=== PATIENT | female | born 1970 | race Caucasian/White ===

== ENCOUNTER 2016-08-06 05:54 | Inpatient (IN) | payer OTHER ==
[~2016-08-06 05:54] MED LIST: ERTAPENEM SODIUM 1 G in NS 0.9% (MINI-BAG PLUS) 50 ML IV ONE; IV START KIT ONE; LACTATED RINGERS 0 ML ONE
[2016-08-06] MEDS ORDERED: ACETAMINOPHEN 500 MG TABLET PO ONE (06:15)
[2016-08-06] MEDS ORDERED: ALVIMOPAN 12 MG CAPSULE PO ONE (06:15)
[2016-08-06] MEDS ORDERED: GABAPENTIN 300 MG CAPSULE PO ONE (06:15)
[2016-08-06] MEDS ORDERED: SODIUM CHLORIDE 0.9% 1,000 ML ONE (06:18)
[2016-08-06] MEDS ORDERED: FENTANYL 5 ML ONE (07:06)
[2016-08-06] MEDS ORDERED: FAMOTIDINE 10 MG/ML 2ML VIAL ONE (07:06)
[2016-08-06] MEDS ORDERED: MIDAZOLAM HCL 5 MG/5 ML VIAL ONE (07:06)
[2016-08-06] MEDS ORDERED: BUPIVACAINE 0.5% W/EPI SDV 30 ML VIAL ONE (07:14)
[2016-08-06] MEDS ORDERED: ONDANSETRON 4 MG/2ML 2 ML VIAL ONE (07:34)
[2016-08-06] MEDS ORDERED: ROCURONIUM BROMIDE 10 MG/ML DOSE IV ONE ×5 (07:34→08:19)
[2016-08-06] MEDS ORDERED: PROPOFOL 20 ML IV ONE (07:34)
[2016-08-06] MEDS ORDERED: DIPHENHYDRAMINE HCL 50 MG/1 ML VIAL ONE (07:34)
[2016-08-06] MEDS ORDERED: IOPAMIDOL 300 (61%) 30 ML SDV ONE (07:35)
[2016-08-06] MEDS ORDERED: FENTANYL 100 MCG/2 ML VIAL IV PRN (07:49)
[2016-08-06] MEDS ORDERED: PROMETHAZINE HCL 25 MG/ML VIAL IM PRN (07:49)
[2016-08-06] MEDS ORDERED: ONDANSETRON 4 MG/2ML 2 ML VIAL IV PRN ×2 (07:49→12:38)
[2016-08-06] MEDS ORDERED: HYDROMORPHONE HCL 1 MG/ML SYRINGE IV PRN (07:49)
[2016-08-06] MEDS ORDERED: NALOXONE HCL 0.4 MG/ML VIAL IV PRN (07:49)
[2016-08-06] MEDS ORDERED: ATROPINE SULFATE 0.4 MG/1 ML VIAL IV PRN (07:49)
[2016-08-06] MEDS ORDERED: SODIUM CHLORIDE 0.9% 1,000 ML IV SCH (08:00)
--- NOTE | 2016-08-06 08:19 | OP ---
Kristina Briceño [id number] DATE OF OPERATION: August 06, 2016 SURGEON: Saad Mendez M.D. RAGS LABORER: None. ANESTHESIA: General. 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 POSTOPERATIVE DIAGNOSIS: Ureters at risk related to sigmoid colon carcinoma. PROCEDURE: Cystoscopy, placement of bilateral externalized ureteral stents. SPECIMENS: None. INDICATIONS: A 45-year-old woman is to undergo a colectomy under the direction of Dr. Brendan Park for colon carcinoma and surgeon considers the ureters at risk due to the location and nature of tumor. He has requested externalized stents. FINDINGS: Minimal squamous metaplasia of the distal trigone. Ureteral orifices normally disposed. No focal bladder lesions or signs of fistula. The stents were placed following a normal course of the ureters on both sides. PROCEDURE IN DETAIL: The patient was identified and brought to the operating room where general anesthesia was induced supine. She was then placed in a dorsolithotomy position and the genital region prepared and draped sterilely. A 21-Malawian rigid cystoscope was introduced with water and irrigant. Findings are reported above. Starting on the left side, we passed a open ended catheter with a floppy tip wire through it, using the wire as a guide up the distal ureter and fluoroscopy to place the stents to position overlying the pelvic bone posteriorly. After removing the wire, the cystoscope was withdrawn leaving the stent in place. The cystoscope was returned to the bladder alongside the left stent and then the right stent was placed in a similar fashion. After the cystoscope had been withdrawn and the stent position was confirmed fluoroscopically, we passed a 60-Malawian Leonardo catheter to gravity drainage with 10 mL of water in its balloon. The externalized stents were secured to the Leonardo catheter using 2-0 Silk Ligasure's. Finally, the ends of each stent were attached to syringes to prevent any unwanted drainage. Estimated blood loss 0. No complications. Patient will remain under anesthesia and surgery continues under the direction of Dr. Brendan Park. JOB: [id number] CC: Dr. Brendan Fischer
[2016-08-06] MEDS ORDERED: INSULIN REGULAR HUMAN (DOSE) 100 UNITS/1 ML ONE ×3 (09:33→11:58)
[2016-08-06] MEDS ORDERED: HYDROMORPHONE HCL 2 MG/ML SYRINGE ONE (09:50)
[2016-08-06] MEDS ORDERED: DEXAMETHASONE SOD PHOS 4 MG/1 ML VIAL ONE (09:50)
[2016-08-06] MEDS ORDERED: METOCLOPRAMIDE HCL 5 MG/ML 2ML VIAL ONE (09:50)
[2016-08-06] MEDS ORDERED: KETOROLAC TROMETHAMINE 30 MG/ML 1 ML VIAL ONE (11:07)
[2016-08-06] MEDS ORDERED: NEOSTIGMINE METHYLSULFATE 1 MG/ML DOSE ONE (11:08)
[2016-08-06] MEDS ORDERED: GLYCOPYRROLATE 0.2 MG/ML 1ML VIAL ONE (11:08)
--- NOTE | 2016-08-06 11:45 | RAD ---
[place] for CATHETER/TUBE PLCIN COMPARISON: CT abdomen and pelvis, 07/22/2016 HISTORY: Ureters at risk related to sigmoid colon carcinoma. Cystoscopy, placement of bilateral externalized ureteral stents. Fluoroscopy time: None FINDINGS: Views: 2 views of the ureteral stents/abdomen. Support equipment: There are 2 externalized ureteral stents in satisfactory position. Bones: Normal. Joints: Normal. Soft tissues: Normal. IMPRESSION: 1. There are 2 externalized ureteral stents in satisfactory position.
[2016-08-06] MEDS ORDERED: INSULIN REGULAR HUMAN (DOSE) 100 UNITS/1 ML SUB-Q ONE (12:06)
[2016-08-06] MEDS ORDERED: MENTHOL/CETYLPYRD 1 EACH LOZENGE PO PRN (12:38)
[2016-08-06] MEDS ORDERED: BLISTEX LIPSTICK 1 EACH TP PRN (12:38)
[2016-08-06] MEDS ORDERED: PCA ADMINISTRATION KIT ONE (13:21)
[2016-08-06] MEDS ORDERED: EtCO2 Monitoring Set ONE (13:23)
[2016-08-06] MEDS ORDERED: PUMP TUBING ONE (13:29)
[2016-08-06] MEDS: HYDROMORPHONE PCA (MONOJECT) 12 MG/30 ML INJ.SOLN IV SCH ×2 (13:45→18:08)
[2016-08-06] MEDS: LACTATED RINGERS 1,000 ML IV SCH ×2 (13:56→22:36)
[2016-08-06] MEDS: ACETAMINOPHEN IV SCH ×2 (14:02→19:51)
[2016-08-06] MEDS: BOT IV SCH ×2 (14:02→19:51)
[2016-08-06 16:04] VITALS: BMI 47.9
[2016-08-06] MEDS ORDERED: FLU VACC 2016-17 (36MO-64Y)/PF 60 MCG/0.5 ML SYRINGE IM V ONE (16:12)
[2016-08-06] MEDS ORDERED: PNEUMOCOCCAL 23-VAL P-SAC VAC 0.5 ML VIAL IM V ONE (16:12)
[2016-08-06] MEDS: INSULIN ASPART (DOSE) 100 UNITS/1 ML SUB-Q PRN (16:47)
[2016-08-06] MEDS: KETOROLAC TROMETHAMINE 30 MG/ML 1 ML VIAL IV SCH ×2 (17:55→22:36)
--- NOTE | 2016-08-06 19:05 | OP ---
ROC GIVENS [id number] DATE OF OPERATION: August 06, 2016 PREOPERATIVE DIAGNOSIS: Sigmoid colon cancer. POSTOPERATIVE DIAGNOSIS: Sigmoid colon cancer. PROCEDURE: LAPAROSCOPIC SIGMOID COLECTOMY. SURGEON: Brendan Park M.D. STONE FINISHER: Abel Caballero M.D. ANESTHESIA: Skyler Headley C.R.N.A., general endotracheal. INDICATIONS: This is a 45-year-old female who underwent a colonoscopy for rectal bleeding who was found to have a mass in the sigmoid colon. Biopsies confirmed adenocarcinoma. Metastatic workup was negative. We elected to proceed with laparoscopic colectomy with high chance of requiring an open surgery due to her significant obesity. DESCRIPTION: With informed consent she first was taken back to the operating room under the care of Dr. Mendez. She underwent a general endotracheal anesthetic. She had ureteral stents placed by Dr. Mendez, and the details of that will be delineated in a separate dictation. After completion of his procedure, she was left in [facility]. Arms were tucked and the abdomen was prepped and draped along with the perineal prep in the usual standard fashion. A vertical incision was made below the umbilicus. We dissected down to the fascia. This was opened with curved Prater scissors. Sutures of Surgilon were placed on the fascial edges and a Cora port was placed. A pneumoperitoneum was created. A 12 mm port was placed in the right lower quadrant. Two 5 mm ports were placed on the left lateral abdominal wall. General survey revealed no evidence of metastatic disease on the peritoneal surfaces or on the liver. I could see the black ink in the distal sigmoid colon. It appeared that there could have been some intraabdominal injection with multiple other areas with some ink staining. It appeared that there was adequate redundancy of the sigmoid colon to allow for a resection without taking down the splenic flexure. With the head down and the patient rotated to the right, we first identified the vascular pedicles of the sigmoid colon. Using the LigaSure, I dissected through the mesentery isolating the vascular pedicle. After some further dissection, we were able to identify the left ureter with a stent in place. We were clearly above that and divided the vascular pedicle with a vascular Endo KATELYN. We then began dissecting the lateral attachments away from the pelvis and sidewall. This was done with the LigaSure up to the mid descending colon. I dissected this down into the pelvis until the sigmoid colon could be completely mobilized to the midline. We then went down through the mesentery using the LigaSure. Superior hemorrhoidal vessels were isolated and divided with an Endo KATELYN. We dissected down to the floor of the pelvis which appeared to be at least 5 cm proximal to the area of ink. I freed the mesentery from the rectosigmoid junction. This was then divided using the Endo KATELYN in two fires. A Pfannenstiel incision was made. Electrocautery was used to divide the subcutaneous fat. Anterior rectus fascia was opened with electrocautery. The fascia was elevated off the rectus superiorly and inferiorly. The rectus muscles were split in the midline. The peritoneum was opened with scissors. This was opened further and a wound retractor was placed. Some towels were used to hold the small bowel out of the way. I was able to pull the specimen up so that I could identify the node bearing vascular pedicle. It appeared that we had gotten an adequate lymphadenectomy. I chose a site of proximal transection that appeared viable and would be able to extend down into the pelvis. That part of the colon was divided again with the Endo KATELYN. The specimen was taken to the back table and opened. The malignancy was identified with good proximal and distal margins. A suture was placed on the distal aspect for orientation and that was handed off to pathology. Through the wound retractor, a pursestring was placed around the descending colon. The staple line was excised. It easily accommodated a 33 sizer. A 33 EEA stapler was brought to the field. The anvil was placed in the distal stump and the pursestring tightened. There was possibly a diverticulum extending out to one side, and I was able to suture that up into the pursestring. This was then dropped down into the pelvis, and the GelPort was placed. From below, with laparoscopic exposure reestablished, Dr. Caballero then placed the EEA stapler into the rectum. We extended it to the rectal stump. The trocar was advanced. This was mated to the anvil. This would easily come together without tension. We made sure there was twisting. We had to pull the copious pericolic fat out of the anastomosis. The stapler was brought down to the appropriate level of tension. It was fired. It was released two full turns, and the stapler removed. We had two complete mucosal donuts. The pelvis was filled with fluid. The colon was grasped proximally, and the colonoscope was placed by Dr. Caballero. The anastomosis was hemostatic. It was a good end-to-end complete anastomosis. No air leak was seen in the pelvis. The scope was removed. The pelvis was irrigated. We appeared to have adequate hemostasis. We made sure all laps were removed, made sure the small bowel fell back into its normal position and this was covered then with omentum. Using a bullet and a suture passing device, we closed the fascial defect in the right lower quadrant using #0 Surgilon. The infraumbilical fascial defect was closed with multiple #0 Surgilon. The other fascial defects were small. The Pfannenstiel incision was closed with #2-0 Vicryl on the peritoneum. The anterior fascia was closed with looped #0 PDS. The wound was vigorously irrigated. All skin incisions were closed with jesica. Sterile dressings were applied. Abdominal binder was applied. The ureteral stents were removed, and the Leonardo catheter was left in place. She tolerated the procedure and was taken to the recovery room in stable condition. Note was made that needle, instrument and lap counts were reported as correct at time of closure. [id number] Cc: Saad Mendez M.D. Laci Lambert M.D.
[2016-08-06] MEDS: SERTRALINE HCL 50 MG TABLET PO SCH (19:51)
[2016-08-06] MEDS ORDERED: ARIPIPRAZOLE 2 MG TABLET PO SCH (20:00)
[2016-08-06] MEDS: MELATONIN 3 MG TABLET PO SCH (20:56)
[2016-08-06] MEDS: ALVIMOPAN 12 MG CAPSULE PO SCH (20:56)
[2016-08-07] MEDS: BOT IV SCH ×2 (01:26→06:51)
[2016-08-07] MEDS: ACETAMINOPHEN IV SCH ×2 (01:26→06:51)
[2016-08-07] MEDS: KETOROLAC TROMETHAMINE 30 MG/ML 1 ML VIAL IV SCH ×4 (04:44→22:40)
[2016-08-07] MEDS: HYDROMORPHONE PCA (MONOJECT) 12 MG/30 ML INJ.SOLN IV SCH (06:51)
[2016-08-07] MEDS: INSULIN ASPART (DOSE) 100 UNITS/1 ML SUB-Q PRN ×3 (07:04→20:55)
[2016-08-07] MEDS ORDERED: HYDROMORPHONE HCL 0.5 MG/0.5 ML SYRINGE IV PRN (07:11)
[2016-08-07] MEDS ORDERED: HYDROMORPHONE HCL 1 MG/ML SYRINGE IV PRN (07:15)
[2016-08-07 07:18] LABS: HEMATOCRIT 35.1 % (37.0-47.0); HEMOGLOBIN 11.4 gm/l (12.0-16.0); MEAN CELL VOLUME 88.9 fl (81.0-99.0); MEAN CORPUSCULAR HEMOGLOBIN 28.9 pg (27.0-31.0); MEAN CORPUSCULAR HGB CONC 32.5 g/dl (33.0-37.0); RED CELL DISTRIBUTION WIDTH 13.7 % (11.5-14.5)
[2016-08-07 07:31] LABS: ALB/GLOB RATIO 1.2 (>1.0); ALBUMIN 3.3 gm/dL (3.5-5.7); CALCIUM 8.1 mg/dL (8.6-10.3); MAGNESIUM 2.1 mg/dL (1.9-2.7)
[2016-08-07] MEDS ORDERED: IV START KIT ONE (07:34)
[2016-08-07] MEDS ORDERED: SODIUM CHLORIDE 0.9% 500 ML IV SCH (07:43)
[2016-08-07] MEDS: LACTATED RINGERS 1,000 ML IV SCH ×3 (08:37→19:19)
[2016-08-07] MEDS: ENOXAPARIN SODIUM 40 MG/0.4 ML SYRINGE SUB-Q SCH (08:37)
[2016-08-07] MEDS: ALVIMOPAN 12 MG CAPSULE PO SCH ×2 (08:37→20:47)
[2016-08-07] MEDS ORDERED: ACETAMINOPHEN 500 MG TABLET PO SCH (13:30)
--- NOTE | 2016-08-07 14:15 | US ---
RIGHT UPPER EXTREMITY VENOUS ULTRASOUND HISTORY: Right arm swelling x4 hours.. Sonography of the right upper extremity was performed, with a focus on the venous structures. FINDINGS: INTERNAL JUGULAR AND SUBCLAVIAN VEINS: Patent. AXILLARY VEIN: Patent and compressible. BRACHIAL VEINS: Patent and compressible. BASILIC AND CEPHALIC VEINS: Patent and compressible. DISTAL WRIST VEINS: Patent and compressible. RESPIRATORY AUGMENTATION OF FLOW: Present. ABNORMAL FLUID COLLECTIONS: None identified. IMPRESSION: No sonographic evidence of right upper extremity deep venous thrombosis. A voicemail message was left for Dr. Park on the date of examination at 1411 hours.
[2016-08-07] MEDS: ACETAMINOPHEN 500 MG TABLET PO SCH ×2 (17:01→22:39)
--- NOTE | 2016-08-07 18:14 | PDOC43 ---
- Subjective Subjective: Reports Flatus, Reports Pain Tolerable, Reports Other (Some right arm swelling.), Denies Nausea - Objective Vital Signs Temperature 98.2 F 08/07/16 15:49 Pulse Rate 69 08/07/16 15:49 Respiratory Rate 18 08/07/16 15:49 Blood Pressure 92/55 08/07/16 15:49 O2 Saturation by Pulse Oximetry 98 08/07/16 15:49 Oxygen Delivery Method Room Air Oxygen Flow Rate 0 Laboratory 08/07/16 06:07 08/07/16 06:07 08/07/16 08/07/16 08/07/16 17:06 11:23 06:51 RBC MCHC Estimated GFR POC Capillary Glucose 137 H 168 H 163 H Calcium AST Total Protein Albumin 08/07/16 08/06/16 06:07 20:55 RBC 3.95 L MCHC 32.5 L Estimated GFR 108 H POC Capillary Glucose 159 H Calcium 8.1 L AST 45 H Total Protein 6.0 L Albumin 3.3 L Active Medication Orders Category Date Time Status Acetaminophen [Tylenol] Med 08/07/16 17:00 Active 1,000 mg PO Q6H Alvimopan [Entereg] Med 08/06/16 21:00 Active 12 mg PO BID Aripiprazole [Abilify] Med 08/06/16 20:00 Active 2 mg PO QPM Enoxaparin Sodium [Lovenox] Med 08/07/16 08:34 Active 40 mg SUB-Q Q24H Hydromorphone HCl [Dilaudid] Med 08/07/16 07:11 Active 0.5 - 1 mg IV Q1H PRN Hydromorphone HCl [Dilaudid] Med 08/07/16 07:15 Active 0.5 - 1 mg IV Q1H PRN Insulin Aspart (Dose) [Novolog (Dose)] Med 08/06/16 12:38 Active See Protocol SUB-Q WM/BEDTIME PRN Ketorolac Tromethamine [Toradol] Med 08/06/16 17:00 Active 30 mg IV Q6H Lactated Ringers 1,000 ml Med 08/06/16 12:38 Active IV 100 mls/hr Lip [place] [Blistex] Med 08/06/16 12:38 Active 1 each TP PRN PRN Melatonin Med 08/06/16 20:00 Active 3 mg PO QPM Menthol/Cetylpyridinium [Cepacol] Med 08/06/16 12:38 Active 1 each PO PRN PRN Ondansetron 4 mg/2ml Vial [Zofran] Med 08/06/16 12:38 Active 4 mg IV Q4H PRN Sertraline HCl [Zoloft] Med 08/06/16 20:00 Active 150 mg PO QPM Sodium Chloride 0.9% Flush [Normal Saline 10ml Flush] Med 08/06/16 12:38 Active 10 - 50 ml IV PRN PRN Sodium Chloride 0.9% Flush [Normal Saline 10ml Flush] Med 08/06/16 17:00 Active 10 ml IV Q8HR Intake and Output 08/06/16 08/07/16 08/08/16 06:59 06:59 06:59 Intake Total 4160 1736 Output Total 695 400 Balance 3465 1336 General: Alert, Oriented x3 Abdomen: Soft, Mild Distention Wound: Dressing Clean/Dry/Intact - Assessment/ Plan (1) Cancer of sigmoid colon Status: Acute Assessment/ Plan: Doing well. Leonardo DC'd. No nausea. (2) Diabetes Qualifiers: Diabetes mellitus type: type 2 Diabetes mellitus complication status: with unspecified complications Diabetes mellitus exterminator helper insulin use: without exterminator helper use Qualifier Code: (E11.8) Type 2 diabetes mellitus with unspecified complications Status: Acute Assessment/ Plan: Stable on sliding scale insulin. Restart oral meds when taking regular food in next day or two. (3) Obesity Qualifiers: Obesity type: due to excess calories Obesity severity: morbid Qualifier Code: (E66.01) Morbid (severe) obesity due to excess calories Status: Acute Assessment/ Plan: Encourage ambulation. IS. (4) Sleep apnea Qualifiers: Sleep apnea type: unspecified type Qualifier Code: (G47.30) Sleep apnea , unspecified Status: Acute Assessment/ Plan: c-pap
[2016-08-07] MEDS: SERTRALINE HCL 50 MG TABLET PO SCH (20:47)
[2016-08-07] MEDS: MELATONIN 3 MG TABLET PO SCH (20:47)
[2016-08-07] MEDS: ARIPIPRAZOLE 2 MG TABLET PO SCH (20:48)
[2016-08-08] MEDS: LACTATED RINGERS 1,000 ML IV SCH ×2 (05:11→17:10)
[2016-08-08] MEDS: KETOROLAC TROMETHAMINE 30 MG/ML 1 ML VIAL IV SCH ×4 (05:11→17:27)
[2016-08-08] MEDS: ACETAMINOPHEN 500 MG TABLET PO SCH ×2 (05:12→11:29)
--- NOTE | 2016-08-08 06:46 | PDOC43 ---
- Subjective Subjective: Reports Flatus, Reports Pain Tolerable, Reports Bowel Movement, Denies Nausea - Objective Vital Signs Temperature 98.2 F 08/08/16 03:33 Pulse Rate 75 08/08/16 03:33 Respiratory Rate 18 08/08/16 03:33 Blood Pressure 111/61 08/08/16 03:33 O2 Saturation by Pulse Oximetry 97 08/08/16 03:33 Oxygen Delivery Method Room Air Oxygen Flow Rate 0 Laboratory 08/07/16 06:07 08/07/16 06:07 08/07/16 08/07/16 08/07/16 20:46 17:06 11:23 RBC MCHC Estimated GFR POC Capillary Glucose 221 H 137 H 168 H Calcium AST Total Protein Albumin 08/07/16 08/07/16 06:51 06:07 RBC 3.95 L MCHC 32.5 L Estimated GFR 108 H POC Capillary Glucose 163 H Calcium 8.1 L AST 45 H Total Protein 6.0 L Albumin 3.3 L Active Medication Orders Category Date Time Status Acetaminophen [Tylenol] Med 08/07/16 17:00 Active 1,000 mg PO Q6H Alvimopan [Entereg] Med 08/06/16 21:00 Active 12 mg PO BID Aripiprazole [Abilify] Med 08/06/16 20:00 Active 2 mg PO QPM Enoxaparin Sodium [Lovenox] Med 08/07/16 08:34 Active 40 mg SUB-Q Q24H Glimepiride [Amaryl] Med 08/08/16 09:00 Ordered 4 mg PO DAILY Hydromorphone HCl [Dilaudid] Med 08/07/16 07:11 Active 0.5 - 1 mg IV Q1H PRN Hydromorphone HCl [Dilaudid] Med 08/07/16 07:15 Active 0.5 - 1 mg IV Q1H PRN Insulin Aspart (Dose) [Novolog (Dose)] Med 08/06/16 12:38 Active See Protocol SUB-Q WM/BEDTIME PRN Ketorolac Tromethamine [Toradol] Med 08/06/16 17:00 Active 30 mg IV Q6H Lactated Ringers 1,000 ml Med 08/06/16 12:38 Active IV 100 mls/hr Lip [place] [Blistex] Med 08/06/16 12:38 Active 1 each TP PRN PRN Melatonin Med 08/06/16 20:00 Active 3 mg PO QPM Menthol/Cetylpyridinium [Cepacol] Med 08/06/16 12:38 Active 1 each PO PRN PRN Metformin HCl [Glucophage] Med 08/08/16 09:00 Ordered 1,000 mg PO BIDWM Ondansetron 4 mg/2ml Vial [Zofran] Med 08/06/16 12:38 Active 4 mg IV Q4H PRN Pioglitazone HCl [Actos] Med 08/08/16 09:00 Ordered 15 mg PO DAILY Sertraline HCl [Zoloft] Med 08/06/16 20:00 Active 150 mg PO QPM Sitagliptin Phosphate [Januvia] Med 08/08/16 09:00 Ordered 100 mg PO DAILY Sodium Chloride 0.9% Flush [Normal Saline 10ml Flush] Med 08/06/16 12:38 Active 10 - 50 ml IV PRN PRN Sodium Chloride 0.9% Flush [Normal Saline 10ml Flush] Med 08/06/16 17:00 Active 10 ml IV Q8HR Intake and Output 08/06/16 08/07/16 08/08/16 06:59 06:59 06:59 Intake Total 4160 4421 Output Total 695 1150 Balance 3465 3271 General: Alert, Oriented x3 Abdomen: Soft, Non-Distended Wound: Dressing Clean/Dry/Intact - Assessment/ Plan (1) Cancer of sigmoid colon Status: Acute Assessment/ Plan: Advance diet. Restart diabetic meds. 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 Restart oral meds. (3) Obesity Qualifiers: Obesity type: due to excess calories Obesity severity: morbid Qualifier Code: (E66.01) Morbid (severe) obesity due to excess calories Status: Acute Assessment/ Plan: Encourage ambulation. IS. (4) Sleep apnea Qualifiers: Sleep apnea type: unspecified type Qualifier Code: (G47.30) Sleep apnea , unspecified Status: Acute Assessment/ Plan: c-pap
[2016-08-08 07:01] LABS: HEMATOCRIT 32.8 % (37.0-47.0); HEMOGLOBIN 10.8 gm/l (12.0-16.0); MEAN CELL VOLUME 89.1 fl (81.0-99.0); MEAN CORPUSCULAR HEMOGLOBIN 29.3 pg (27.0-31.0); MEAN CORPUSCULAR HGB CONC 32.9 g/dl (33.0-37.0); RED CELL DISTRIBUTION WIDTH 13.7 % (11.5-14.5)
[2016-08-08 07:20] LABS: ALB/GLOB RATIO 1.1 (>1.0); ALBUMIN 3.1 gm/dL (3.5-5.7)
[2016-08-08] MEDS: PIOGLITAZONE HCL 15 MG TABLET PO SCH (08:33)
[2016-08-08] MEDS: GLIMEPIRIDE 4 MG TABLET PO SCH (08:33)
[2016-08-08] MEDS: ENOXAPARIN SODIUM 40 MG/0.4 ML SYRINGE SUB-Q SCH (08:33)
[2016-08-08] MEDS: METFORMIN HCL 1,000 MG TABLET PO SCH ×2 (08:34→17:20)
[2016-08-08] MEDS: ALVIMOPAN 12 MG CAPSULE PO SCH ×2 (08:35→20:41)
[2016-08-08] MEDS: INSULIN ASPART (DOSE) 100 UNITS/1 ML SUB-Q PRN (08:35)
[2016-08-08] MEDS ORDERED: SITAGLIPTIN PHOSPHATE 100 MG TABLET PO SCH (09:00)
[2016-08-08] MEDS: SITAGLIPTIN PHOSPHATE 100 MG TABLET PO SCH (09:13)
[2016-08-08] MEDS: SERTRALINE HCL 50 MG TABLET PO SCH (20:41)
[2016-08-08] MEDS: ARIPIPRAZOLE 2 MG TABLET PO SCH (20:41)
[2016-08-08] MEDS: MELATONIN 3 MG TABLET PO SCH (20:41)
[2016-08-09] MEDS: LACTATED RINGERS 1,000 ML IV SCH (00:23)
[2016-08-09] MEDS: OXYCODONE HCL 5 MG TABLET PO PRN ×2 (01:25→09:38)
[2016-08-09 07:03] LABS: HEMATOCRIT 33.9 % (37.0-47.0); HEMOGLOBIN 10.9 gm/l (12.0-16.0); MEAN CELL VOLUME 89.7 fl (81.0-99.0); MEAN CORPUSCULAR HEMOGLOBIN 28.8 pg (27.0-31.0); MEAN CORPUSCULAR HGB CONC 32.2 g/dl (33.0-37.0); RED CELL DISTRIBUTION WIDTH 13.8 % (11.5-14.5)
[2016-08-09 07:16] LABS: CALCIUM 8.8 mg/dL (8.6-10.3)
[2016-08-09] MEDS: ENOXAPARIN SODIUM 40 MG/0.4 ML SYRINGE SUB-Q SCH (09:36)
[2016-08-09] MEDS: PIOGLITAZONE HCL 15 MG TABLET PO SCH (09:38)
[2016-08-09] MEDS: METFORMIN HCL 1,000 MG TABLET PO SCH (09:38)
[2016-08-09] MEDS: GLIMEPIRIDE 4 MG TABLET PO SCH (09:39)
[2016-08-09] MEDS: ALVIMOPAN 12 MG CAPSULE PO SCH (09:40)
[2016-08-09] MEDS: SITAGLIPTIN PHOSPHATE 100 MG TABLET PO SCH (09:41)
[2016-08-09 13:17] VITALS: BP 124/79
--- NOTE | 2016-08-09 13:29 | SURGPATH ---
[facility] [address] [place] [id number] Patient Name: ROC GIVENS MR#: [id number] : 1970 Gender: F Specimen #: [id number] Collected: 08/06/2016 Received: 08/07/2016 Reported: 08/09/2016 Submitting Phys: MAICO WHITE Copy To Phys: [facility] Addendum Present Clinical History / Pre-Operative Diagnosis: Sigmoid colon cancer Specimen Source / Surgical Procedure Performed: Sigmoid colon-stitch is distal HIGH PRIORITY DIAGNOSIS. REQUIRES CLINICAL ATTENTION Interpretation: RESECTION, SIGMOID COLON: - LOW-GRADE ADENOCARCINOMA OF SIGMOID COLON. - MARGINS OF RESECTION NEGATIVE FOR TUMOR. - NO EVIDENCE OF METASTATIC CARCINOMA IN A TOTAL OF 14 REGIONAL LYMPH NODES (0/14). - STAGE: pT3 pN0 - SEE SYNOPTIC REPORT. COLORECTAL CANCER CASE SUMMARY: SPECIMEN: Sigmoid colon PROCEDURE: Resection SPECIMEN LENGTH: 23 cm TUMOR SITE: Sigmoid colon TUMOR SIZE: 4.5 cm long x 3.5 cm wide x 0.7 cm deep MACROSCOPIC TUMOR PERFORATION: Absent MACROSCOPIC INTACTNESS OF MESORECTUM: Not applicable HISTOLOGIC TYPE: Adenocarcinoma HISTOLOGIC GRADE: Low-grade (well to moderately differentiated) MICROSCOPIC TUMOR EXTENSION: Tumor invades through the muscularis propria into the subserosal adipose tissue MARGINS: Proximal Margin: Uninvolved (10 cm). Distal Margin: Uninvolved (8 cm). Vascular/Mesenteric Margin: Uninvolved (10 cm). TREATMENT EFFECT (NEOADJUVANT THERAPY): No known prior treatment LYMPHATIC INVASION: Not identified LARGE VESSEL INVASION: Present PERINEURAL INVASION: Not identified TUMOR DEPOSITS (DISCONTINUOUS EXTRAMURAL EXTENSION): Not identified TYPE OF POLYP IN WHICH INVASIVE CARCINOMA AROSE: Indeterminate TNM DESCRIPTORS: Not applicable PRIMARY TUMOR (pT): pT3: Tumor invades through the muscularis propria into pericolorectal tissues REGIONAL LYMPH NODES (pN): pN0: No regional lymph node metastasis Number involved / Number examined: 0 / 14 DISTANT METASTASIS (pM): Not applicable ANCILLARY STUDIES: MMR testing by IHC is pending and will be reported separately. Testing is pending on block E. ADDITIONAL PATHOLOGIC FINDINGS: Not applicable Electronically Signed Out Christy Patino M.D. Addendum Date Reported: 08/12/2016 Signed Out Addendum Diagnosis MISMATCH REPAIR (MMR) PROTEIN EVALUATION BY IMMUNOHISTOCHEMISTRY: - MLH1 NUCLEAR EXPRESSION: INTACT - MSH2 NUCLEAR EXPRESSION: INTACT - MSH6 NUCLEAR EXPRESSION: INTACT - PMS2 NUCLEAR EXPRESSION: INTACT INTERPRETATION: Or or - NO LOSS OF NUCLEAR EXPRESSION OF MMR PROTEINS - LOW PROBABILITY OF MENDOZA SYNDROME OR MICROSATELLITE INSTABILITY RECOMMENDATION: - NO SPECIFIC FOLLOWUP RECOMMENDED Mismatch repair proteins are the products of four genes responsible for DNA mismatch repair. Inactivation of these genes may occur by germline mutation (i.e. Mendoza Syndrome) or sporadic inactivation. Loss of gene expression has a high sensitivity (90-95%) and specificity (100%) for the detection of microsatellite unstable cancers (MSI). Intact protein expression essentially excludes microsatellite unstable tumors or Mendoza Syndrome. However, intact protein expression does not exclude all types of hereditary cancer. If a strong family history of colorectal or other malignancies is present, genetic counseling may be indicated. Positive BRAF mutation analysis (if performed) is indicative of sporadic inactivation and virtually excludes Mendoza Syndrome. [facility] genetic counseling may be contacted at [phone]. (Immunohistochemical analysis is performed using standard methods on a Leica automated instrument using paraffin embedded tumor. Primary anti-sera react with MLH1, MSH2, MSH6, and PMS2 (Clones ES05, 25D12, PU29, M0R4G, Novocastra). Analyte-specific reagents (ASR) are used in many laboratory tests necessary for standard medical care and generally do not require FDA approval. This test was developed and its performance characteristics determined by [facility]. It has not been cleared or approved by the U.S. Food and Drug Administration. [facility] is certified under the Clinical Laboratory Improvement Amendments of 1988 as qualified to perform high complexity clinical laboratory testing. All internal (nuclear) and external controls stain as expected.) magnolia/08/12/2016 Electronically Signed Out Virgilio Deutsch M.D. Gross Description: The specimen is received in formalin labeled with the patient's name and "sigmoid colon". SPECIMEN: Organ/tissue received: Sigmoid colon Fixation: Formalin Number of pieces: One Dimensions: 23 x 2.2 x 2.2 cm Orientation (If indicated): Stitch is distal. TUMOR: Location: Sigmoid colon, central specimen, above peritoneal reflection Dimensions/description: The slightly exophytic bee granular mass is 4.5 x 3.5 x 0.7 cm with serpentine heaped up edges. The mass is approximately 75% of the bowel circumference. Distance from margins: Proximal: 10 cm Distal: 8 cm Radial/Vascular: 10 cm Estimated depth of invasion: Does not grossly appear to breach the colon wall or extend into the pericolonic fat. DESCRIPTION OF UNINVOLVED COLON/RECTUM AND ADDITIONAL PATHOLOGIC FEATURES: Serosa: Unremarkable with attached fat. Mucosa: The remaining mucosa is bee and normally folded. Mesorectum: Not included REGIONAL LYMPH NODES: 16 small possible lymph nodes are identified. TISSUE SUBMITTED FOR MICROSCOPIC EVALUATION: A. stapled en face distal margin B. stapled en face proximal margin C. vascular margin D.-G. inside technical sales representative mass H.-K. possible lymph nodes x4 each CHANO Trevino Microscopic Description: Performed. See synoptic report. 1: 88137, G8721, 11760, 74154(3), 64323, 77297(3) C18.7
--- NOTE | 2016-08-12 13:41 | DS ---
ROC GIVENS [id number] DATE OF ADMISSION: August 06, 2016 DATE OF DISCHARGE: August 09, 2016 SURGERY SERVICE: Brendan Park M.D. HISTORY: Roc Givens is a 45-year-old female who had symptoms of bright red blood per rectum. Colonoscopy by Dr. Pride showed a mass at 25 cm in the sigmoid colon. Biopsies proved this to be adenocarcinoma. The metastatic workup was negative. She did have a gallstone which was asymptomatic, a renal cyst and a small pulmonary lesion. She was taken to the operating room for elective sigmoid colectomy. PAST MEDICAL HISTORY: 1. Anxiety. 2. Depression. 3. Morbid obesity. 4. Type 2 diabetes. PAST SURGICAL HISTORY: 1. Pilonidal cyst surgery. 2. Left hip and sacral fracture in 1990 CURRENT MEDICATIONS: 1. Abilify 2 mg 2. Adult aspirin 81 mg. 3. Melatonin 3 mg 4. Glimepiride 4 mg daily. 5. Januvia 100 mg daily. 6. Metformin 1000 mg orally twice daily. 7. Sertraline 150 mg daily. 8. Simvastatin 10 mg daily. ALLERGIES: NONE KNOWN. HOSPITAL COURSE: Under general anesthesia the patient first had ureteral stents placed by Dr. Mendez. She then underwent a laparoscopic sigmoid colectomy. She was hemodynamically stable during the procedure and was taken to the recovery room in stable condition. With this surgical procedure, the patient had components of an enhanced recovery protocol in place. She was to receive preoperative carbohydrate supplementation. She was given multimodal pain medications as well as Entereg. Postoperatively her CPAP was utilized. She was encouraged to ambulate early. She was started on liquids initially. The Leonardo catheter was removed on postoperative day number one. By postoperative day two she was passing gas. By postoperative day three her pain was well controlled on oral medications. Her incisions were clean, dry and intact. She was eating and having bowel function. She was discharged to home in stable condition. FINAL DIAGNOSES: 1. 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 Pathologic T3, 0 of 14 lymph nodes with metastasis and 0M0. 2. Morbid obesity. 3. Diabetes. 4. Sleep apnea. PROCEDURES PERFORMED: 1. Laparoscopic sigmoid colectomy. 2. Placement of ureteral stents by Dr. Mendez. INSTRUCTIONS ON DISCHARGE: 1. She is to follow up in the office next week. 2. She is to resume her usual home medications. 3. She was given a prescription for oxycodone to take if needed. 4. She may shower. 5. She is to refrain from lifting greater than ten pounds for six weeks. 6. She can have a regular ADA diet. Cc: Guevara Fischer M.D. Canelo Pride M.D.
== END 2016-08-09 14:26 | disposition home or self-care (01) | DRG 330 ==
LOC: OR 05:54 → MS 13:03
PROVIDERS: ADMIT Surgery; ATTEND Surgery
PROC: 0DBN4ZZ Excision of Sigmoid Colon, Percutaneous Endoscopic Approach (ICD-10-PCS; principal; 2016-08-06)
PROC: 0T7D8DZ Dilation of Urethra with Intraluminal Device, Via Natural or Artificial Opening Endoscopic (ICD-10-PCS; 2016-08-06)
DX: C18.7 Malignant neoplasm of sigmoid colon (principal); Z68.42 Body mass index [BMI] 45.0-49.9, adult; F41.9 Anxiety disorder, unspecified; F32.9 Major depressive disorder, single episode, unspecified; E66.01 Morbid (severe) obesity due to excess calories; E11.9 Type 2 diabetes mellitus without complications; Z79.84 Long term (current) use of oral hypoglycemic drugs; N28.1 Cyst of kidney, acquired; K80.80 Other cholelithiasis without obstruction; J98.4 Other disorders of lung

== ENCOUNTER 2016-08-15 05:22 | Emergency (ER) | payer OTHER | END 2016-08-15 15:55 | disposition home or self-care (01) | LOC: ED 05:22 | DX: K91.89 Other postprocedural complications and disorders of digestive system (principal); Z85.038 Personal history of other malignant neoplasm of large intestine; E78.00 Pure hypercholesterolemia, unspecified; E11.9 Type 2 diabetes mellitus without complications; F41.9 Anxiety disorder, unspecified; F32.9 Major depressive disorder, single episode, unspecified ==